=== PATIENT | male | born 1985 | race Caucasian/White ===

== ENCOUNTER 2024-08-11 17:51 | Emergency (ER) | payer OTHER ==
[~2024-08-11] VITALS: Ht 170.2 cm; Wt 82.1 kg
[2024-08-11] MEDS ORDERED: BUPIVACAINE 0.5 % PF 150 MG/30 ML VIAL ONE (18:10)
[2024-08-11] MEDS: BUPIVACAINE 0.5 % PF 150 MG/30 ML VIAL IJ ONE (18:16)
[2024-08-11] MEDS ORDERED: IBUP-1490 PO (19:36)
[2024-08-11 20:06] VITALS: BP 130/86; TEMP 98.1; O2SAT 100
== END 2024-08-11 21:12 | disposition home or self-care (01) ==
LOC: ER 18:16
DX: S61.214A Laceration without foreign body of right ring finger without damage to nail, initial encounter (principal); W31.89XA Contact with other specified machinery, initial encounter; Y93.89 Activity, other specified; Y92.89 Other specified places as the place of occurrence of the external cause; Y99.8 Other external cause status
CPT/HCPCS: 99283; 12001; 73130; J3490; A6403